=== PATIENT | female | born 1950 | race Caucasian/White ===

== ENCOUNTER → 2019-04-20 | Day surgery (SDC) | payer MEDICARE ==
[2019-04-18 15:34] LABS: BASOPHILS % 0.3 % (0.0-1.0); EOSINOPHILS # (AUTO) 0.1 (0.0-0.4); EOSINOPHILS % 1.4 % (0.0-6.0); HEMATOCRIT 37.3 % (34.2-44.1); HEMOGLOBIN 12.3 g/dL (12.0-16.0); LYMPHOCYTES # (AUTO) 2.1 (1.0-3.2); LYMPHOCYTES % 22.2 % (18.0-39.1); MEAN CORPUSCULAR HEMOGLOBIN 31.2 pg (28-32); MEAN CORPUSCULAR VOLUME 94.7 fL (81-99); MONOCYTES # (AUTO) 0.7 (0.2-0.8); MONOCYTES % 7.3 % (4.4-11.3); NEUTROPHILS # (AUTO) 6.3 (2.1-6.9); NEUTROPHILS % 68.5 % (38.7-80.0); PLATELET COUNT 270 x10e3/uL (140-360); RED BLOOD COUNT 3.94 x10e6/uL (3.6-5.1); RED CELL DISTRIBUTION WIDTH 14.4 % (11.7-14.4)
--- NOTE | 2019-04-18 16:42 | Diagnostic Imaging Report ---
EXAMINATION: CHEST 2 VIEWS INDICATION: Pre-operative COMPARISON: None FINDINGS: LINES/TUBES:None LUNGS:The lungs are mildly hyperinflated. No focal consolidation or pulmonary edema. PLEURA:No pleural effusion or pneumothorax. MEDIASTINUM:The cardiomediastinal silhouette appears normal in size and shape. BONES/SOFT TISSUES:Exaggerated thoracic kyphosis. Mild degenerative changes of the visualized spine. No acute osseous injury. ABDOMEN:No free air under the diaphragm. IMPRESSION: No focal pneumonia or pulmonary edema. Signed by: Ashley Patricio MD on 04/18/2019 4:39 PM
[~2019-04-20] MED LIST: ADVIL200 MG PO; BACITRACIN 50,000 UNIT VIAL ONE; BUPIVACAINE HCL 0.5% INJ 30 ML VIAL INJ ONE; CALCIUM ZINC PO; CEFAZOLIN SOD 1 GM/NS 50ML 100 ML IV ONE; COQ-1030 MG PO; DEXAMETHASONE SOD PHOS INJ 4 MG/ML VIAL ONE; EPHEDRINE SULFATE INJ 50 MG/10 ML SYR ONE; FENTANYL CITRATE/PF 100MCG/2 ML INJ ONE; GARLIC1 EAC1 PO; HYDROMORPHONE 1MG/1ML INJ ONE; IBUPROFEN 800MG/ 250ML 250 ML IV ONE; KETAMINE HCL INJ 50 MG/ML 10 ML VIAL ONE; LIDOCAINE HCL 2% LOCAL INJ 5 ML SDV VIAL INJ ONE; LISINOPRIL10 MG PO; METOCLOPRAMIDE HCL 10 MG/2ML VIAL ONE; MIDAZOLAM HCL 2 MG/2 ML VIAL ONE; MORPHINE SULFATE INJ 10 MG/ML ONE; MULTIVITAMINS1 EAC7 PO; NORCO 5-325 TA1 EACH PO; OMEPRAZOLE40 MG PO; ONDANSETRON HCL INJ 2MG/ML 2ML 2 MG/ML VIAL ONE; POTASSIUM99 M1 PO; PROPOFOL IV EMULSION 10 MG/ML 20 ML VIAL ONE; SEVOFLURANE INHAL SOLN 250 ML PEN BTL ONE; VISION VITAMIN1 EACH PO
--- OUTSIDE RECORDS SUMMARY | 2019-04-20 07:02 | XMS REPORT ---
Author Author [facility] Address Unknown Phone Unavailable Care Team Providers Care Skills Auditor Name Role Phone MISHEL PARIKH Unavailable Unavailable Problems This patient has no known problems. Allergies, Adverse Reactions, Alerts This patient has no known allergies or adverse reactions. Medications This patient has no known medications. Results Test Description Test Time Test Comments Text Results Atomic Results Result Comments CHEST 2 VIEWS 2019-04-18 16:38:00 [place] [address] Patient Name: NAZIA SINGH MR #: [id number] : 1950 Age/Sex: 69/F Req #: [id number] Adm Physician: Ordered by: MISHEL PARIKH MD Report #: [id number] Location: OR Room/Bed: Procedure: [id number] DX/CHEST 2 VIEWS Exam Date: 04/18/19 Exam Time: 1504 REPORT STATUS: Signed EXAMINATION: CHEST 2 VIEWS INDICATION: Pre-operative COMPARISON: None FINDINGS: LINES/TUBES:None LUNGS:The lungs are mildly hyperinflated. No focal consolidation or pulmonary edema. PLEURA:No pleural effusion or pneumothorax. MEDIASTINUM:The cardiomediastinal silhouette appears normal in size and shape. BONES/SOFT TISSUES:Exaggerated thoracic kyphosis. Mild degenerative changes of the visualized spine. No acute osseous injury. ABDOMEN:No free air under the diaphragm. IMPRESSION: No focal pneumonia or pulmonary edema. Signed by: Faby Gomez MD on 04/18/2019 4:39 PM Dictated By: FABY GOMEZ MD 163 Transcribed By: ZHANG on 04/18/19 163 COPY TO: MISHEL PARIKH MD
[2019-04-20 14:00] VITALS: BP 108/58
--- NOTE | 2019-04-22 22:40 | Operative Report ---
DATE OF PROCEDURE: 04/20/2019 SURGEON: Cortez Schrader MD PREOPERATIVE DIAGNOSIS: Displaced left trimalleolar ankle fracture. POSTOPERATIVE DIAGNOSIS: Displaced left trimalleolar ankle fracture. OPERATION AND PROCEDURE PERFORMED: The patient underwent a closed reduction of the left ankle mortise and open reduction and internal fixation of the left fibular fracture and open reduction and internal fixation of left medial malleolus fracture. CALENDER SUPERVISOR: ERICH Rust. ANESTHESIA: General endotracheal intubation anesthesia. IV FLUIDS: As per the anesthesia record. BRIEF DESCRIPTION OF THE PATIENT'S OPERATIVE PROCEDURE: Ms. Hood was taken to the operating room, placed in supine position on the operating table. Following induction of general anesthesia as well as endotracheal intubation, the patient's left lower extremity was examined under anesthesia. She was found to have bruising and swelling about the left ankle joint. She also had a fracture blister over the proximal medial aspect of the ankle. Fluoroscopic evaluation of the ankle joint demonstrated a left trimalleolar ankle fracture with disruption of the ankle mortise. The patient's lower extremity was prepped and draped in standard surgical fashion. The case was begun by reducing the ankle mortise in a close fashion. An incision was then carried over the fibula laterally and this incision was carried through skin only. Blunt dissection used to deepen the incision to the level of the fibular fracture. Care was taken to identify and protect the superficial peroneal nerve during the dissection for the ankle. The fracture was cleaned and irrigated. The fracture was reduced using a fracture reduction clamp and the plate was contoured to the lateral aspect of the fibula. This plate was then affixed to the fibula with combinations of cortical and cancellous screws. The reduction of the fibular fracture was assessed using fluoroscopy and found to be appropriate. Attention was then turned to the patient's medial malleolus fracture. Fluoroscopic evaluation of the medial malleolus demonstrated continued displacement. A curvilinear incision centered over the distal aspect of the medial malleolus was carried through the skin only. Blunt dissection was used to deepen the incision and this saphenous vein was identified and protected throughout the remainder of the approach. The fracture site was easily identified. The fracture site was cleaned and irrigated. The fracture was then reduced and held in place with a reduction clamp while two screws from the 4-0 cannulated screw system were inserted from distal to proximal transfixing the medial malleolus fracture in its reduced position. The position of those screws as well as reduction of fracture was again assessed using fluoroscopy and found to be appropriate. This wound was also copiously irrigated and then both the medial and lateral wounds were closed in a multilayer fashion. Sterile dressings were applied as well as a well-padded three-sided splint. The patient was then awakened, taken to postanesthesia care in stable condition. Lynn Narvaez acted as nurse first assist for this case and was necessary for both prepping and draping the patient as well as the retraction of soft tissues and the application of the splint that allowed this case to be successful. MD JB Rosales/SHILA /[id number]
== END | disposition home or self-care (01) ==
LOC: OR 06:59
PROVIDERS: ATTEND Specialist
DX: S82.852A Displaced trimalleolar fracture of left lower leg, initial encounter for closed fracture (principal); K21.9 Gastro-esophageal reflux disease without esophagitis; I10 Essential (primary) hypertension; G47.33 Obstructive sleep apnea (adult) (pediatric); X50.1XXA Overexertion from prolonged static or awkward postures, initial encounter; Y93.01 Activity, walking, marching and hiking; W01.0XXA Fall on same level from slipping, tripping and stumbling without subsequent striking against object, initial encounter; Z88.2 Allergy status to sulfonamides; Z01.810 Encounter for preprocedural cardiovascular examination; Z01.812 Encounter for preprocedural laboratory examination; Z01.818 Encounter for other preprocedural examination
CPT/HCPCS: 27822; 36415; 71046; 76000; 85025; 93005; C1713 ×7; C1769; J0690; J1100; J1170; J2001; J2250; J2270; J2405; J2704; J2765; J3010